=== PATIENT | female | born 1985 | race African-American/Black ===

== ENCOUNTER 2017-04-23 10:51 | Emergency (ER) | payer BC, OTHER | END 2017-04-23 14:45 | disposition home or self-care (01) | LOC: ERS 10:51 | DX: B34.9 Viral infection, unspecified (principal); D50.9 Iron deficiency anemia, unspecified; G40.909 Epilepsy, unspecified, not intractable, without status epilepticus; J45.909 Unspecified asthma, uncomplicated; F31.9 Bipolar disorder, unspecified; F17.210 Nicotine dependence, cigarettes, uncomplicated; Z71.6 Tobacco abuse counseling | CPT/HCPCS: 99406 ==

== ENCOUNTER 2022-10-16 14:25 | Outpatient (CLI) | payer MEDICAID | END 2022-10-16 14:26 | disposition home or self-care (01) | LOC: BICMAMMO 14:25 | PROVIDERS: ATTEND Nurse Practitioner Women's Health | DX: N64.52 Nipple discharge (principal) | CPT/HCPCS: 77066; G0279 ==